=== PATIENT | male | born 1960 | race Caucasian/White ===

== ENCOUNTER 2017-08-30 16:24 | Emergency (ER) | payer OTHER ==
[2017-08-30 17:31] VITALS: BP 132/76
[2017-08-30] MEDS ORDERED: Cephalexin 500 MG Cap PO ONE (17:44)
--- NOTE | 2017-09-01 16:37 | ER ---
DATE SEEN: 08/30/2017 TIME SEEN: The patient was seen at 1648 hours. CHIEF COMPLAINT: He was cleaning a pheasant with a sharp knife and cut the left dorsum of his thumb. HISTORY OF PRESENT ILLNESS: This pleasant 57-year-old man is otherwise healthy. 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 PAST MEDICAL HISTORY: Diabetes: None. No heart disease, high blood pressure, serious illnesses, hospitalization, or skin infections. No MRSA. The patient is otherwise healthy. ALLERGIES: None. CURRENT MEDICATIONS: None. Apparently, he does have medicines, but the nurse was unable to validate because she does not have availability of the drugstore nor did he bring his list of medicines in, so until proven otherwise, he has none listed, but he has several he is taking at home. PHYSICAL EXAMINATION: VITAL SIGNS: Blood pressure 140/91, which today was measured at 132/76, heart rate 94 and went down to 76, and his BMI is 31.2 kg/m2, respirations 16, oxygen saturation 100%. GENERAL: This pleasant slightly overweight gentleman has a laceration to his left thumb. It is approximately 1.2 cm. It transects the dermis in a tangential fashion. The tendon is visible, but not lacerated. Did not disrupt the extensor tendon sheath. Wound was cleansed in the sink with aggressive surgical scrub brush, and cleansed again and flushed, and then 1% lidocaine used. Block was placed in the thumb, and 5 stitches of interrupted 4-0 Ethilon placed. No complications. The patient dismissed with 12 tablets of oxycodone use for breakthrough pain, when his 1000 mg Tylenol and ibuprofen taken together every 6 hours is not satisfactory. Elevate. Keep clean. Also, he was given Keflex 500 mg t.i.d. 20 tablets for 7 days to diminish potential risk of infection. Sutures will stay in for at least 14 days. If he wants, he can take out at 10 days per his doctor's discretion. DIAGNOSIS: Laceration, left thumb dorsum, 1.2 cm, interrupted suture closure. /[id number]QU[address]/RADHA
== END 2017-08-30 17:46 | disposition home or self-care (01) ==
LOC: FB.ED 16:24
DX: S61.012A Laceration without foreign body of left thumb without damage to nail, initial encounter (principal); E11.9 Type 2 diabetes mellitus without complications; W26.0XXA Contact with knife, initial encounter
CPT/HCPCS: 12001; 99283; A4217; A9270